=== PATIENT | male | born 1955 | race Caucasian/White ===

== ENCOUNTER 2019-08-07 23:25 | Emergency (ER) | payer SELFPAY ==
[~2019-08-07] VITALS: Ht 170.2 cm; Wt 92.1 kg
[2019-08-07 23:34] VITALS: BP 142/96; Ht 170.2 cm; Wt 92.1 kg
== END 2019-08-08 02:20 | disposition home or self-care (01) ==
LOC: ED 23:25
DX: S39.012A Strain of muscle, fascia and tendon of lower back, initial encounter (principal); I10 Essential (primary) hypertension